=== PATIENT | male | born 1980 | race Caucasian/White ===

== ENCOUNTER 2024-01-27 03:02 | Day surgery (SDC) | payer OTHER, SELFPAY ==
[2024-01-26 12:35] VITALS: BMI 32.8
[2024-01-27] VITALS (12 sets, daily range): BP systolic 97–117; BP diastolic 60–81; PULSE 61–71; RESP 15–20; TEMP 36.4–36.7; O2SAT 92–97; BMI 31.1
[2024-01-27 10:37] LABS: Basophils Absolute Auto 0.1 K/mm3 (0.0-0.1); Eosinophils Absolute Auto 0.3 K/mm3 (0-0.3); Eosinophils Percent Auto 5.7 % (0-4.4); Hemoglobin 16.5 g/dL (14.0-18.0); Immature Granulocyte Absolute 0.01 K/mm3 (0.00-0.031); Immature Granulocyte Percent A 0.2 % (0-0.5); Lymphocytes Absolute Auto 1.25 K/mm3 (0.9-3.2); Lymphocytes Percent Auto 22.2 % (18.3-44.2); Mean Corpuscular HGB Conc 34.4 g/dl (32-36); Mean Corpuscular Hemoglobin 29.6 pg (26-34); Mean Corpuscular Volume 86.2 fl (80-100); Mean Platelet Volume 10.3 fl (7.4-10.4); Monocytes Absolute Auto 0.4 K/mm3 (0.1-0.6); Monocytes Percent Auto 7.3 % (2.6-8.5); Neutrophils Absolute Auto 3.5 K/mm3 (1.3-6.7); Neutrophils Percent Auto 62.6 % (45.5-73.1); Platelet Count Result 184 k/mm3 (150-375); Red Blood Count 5.57 M/mm3 (4.6-6.20); Red Cell Distribution Width 12.5 % (11.5-14.5); White Blood Count 5.6 K/mm3 (4.5-10.0)
[2024-01-27 10:56] LABS: Anion Gap 9 mmol/L (4-12); Blood Urea Nitrogen 17 mg/dL (9-20); Calcium 9.7 mg/dL (8.4-10.2); Carbon Dioxide 26 mmol/L (22-30); Chloride 103 mmol/L (98-107); Estimated CRCL calculation 106 ml/min; Estimated Glomerular Filt Rate > 60; Glucose 118 mg/dL (65-110); Sodium 138 mmol/L (137-145)
--- NOTE | 2024-01-27 13:19 | WPDHPUPDATE1 ---
History and Physical Update Update Date/Time: 01/27/24 13:19 History and Physical has been reviewed, including an updated exam of the patient. There are NO changes in the patient's condition. Risks, benefits, and alternatives have been discussed and questions answered. Patient agrees to proceed with procedure.
--- NOTE | 2024-01-27 13:19 | WPDMODSED ---
Moderate Sedation Note-Pt Data Patient Data Diagnosis: Chest pain, abnormal CCTA Present Complaint: Chest pain, abnormal CCTA Procedure to be performed/Plan: Coronary angiography, left heart cath, +/- PCI Allergies Allergy/AdvReac Type Severity Reaction Status Date / Time metoprolol AdvReac Itching Verified 01/26/24 12:51 Home Medications Medication Instructions Recorded Confirmed Type allopurinol 100 mg tablet 100 mg PO DAILY 01/26/24 01/27/24 History citalopram 20 mg tablet 20 mg PO DAILY 01/26/24 01/27/24 History olmesartan 40 mg tablet 40 mg PO DAILY 01/26/24 01/27/24 History rosuvastatin 10 mg tablet 10 mg PO DAILY 01/26/24 01/27/24 History Current Medications: Active Medications Sodium Chloride (Normal Saline Iv) 500 mls @ 100 mls/hr IV CONT .Q5H LILI Sodium Chloride (Normal Saline Iv) 1,000 mls @ 125 mls/hr IV CONT .Q8H ONE Stop: 01/27/24 21:16 Miscellaneous Information (Please Add Drug Allergy Info To Patient Profile.) 1 each XX CLARIFY LILI Stop: 02/25/24 00:00 Sedation/Anesthesia: No previous sedation/anesthesia problems (including family history). PMFSH Social History Social History Smoking status: Never smoker Smokeless tobacco user: chewing tobacco Second hand tobacco smoke exposure: No Alcohol intake: never Substance use: never Substance use type: does not use Living arrangements: alone Spiritual care concerns: No Mod Sed Physical Exam Physical Exam Pre Procedural Exam: Normal: Appearance, Lungs, Heart Rate, Heart Rhythm, Neuro Exam, Extremities and Skin Hours since solid foods: 12 Hours since liquid intake: 8 Mallampati Classification: class III Internal Medicine - PN: Obj Da Vital Signs Vital Signs: Vital Signs - 24 hr 01/27/24 10:33 Temperature 36.7 C Pulse Rate 63 Respiratory Rate 17 Blood Pressure 116/78 Pulse Oximetry 96 Oxygen Delivery Room Air Meds/Results Medications: Active Medications Generic Name Dose Route Start Last Admin Trade Name Freq PRN Reason Stop Dose Admin Sodium Chloride 500 mls @ 100 mls/hr 01/27/24 10:00 Normal Saline Iv IV CONT .Q5H LILI Sodium Chloride 1,000 mls @ 125 mls/hr 01/27/24 13:17 Normal Saline Iv IV CONT 01/27/24 21:16 .Q8H ONE Miscellaneous Information 1 each 01/26/24 00:01 Please Add Drug Allergy Info To Patient Profile. XX 02/25/24 00:00 CLARIFY LILI Labs 01/27/24 10:22 01/27/24 10:22 Labs: Laboratory Results - last 24 hr 01/27/24 10:22 WBC 5.6 RBC 5.57 Hgb 16.5 Hct 48.0 MCV 86.2 MCH 29.6 MCHC 34.4 RDW 12.5 Plt Count 184 MPV 10.3 Immature Gran % (Auto) 0.2 Neut % (Auto) 62.6 Lymph % (Auto) 22.2 Wise % (Auto) 7.3 Eos % (Auto) 5.7 H Baso % (Auto) 2.0 H Lymph # (Auto) 1.25 Wise # (Auto) 0.4 Eos # (Auto) 0.3 Baso # (Auto) 0.1 Abs Immat Gran (auto) 0.01 Absolute Neuts (auto) 3.5 Absolute Nucleated RBC 0.000 Nucleated RBC % 0.0 Sodium 138 Potassium 4.0 Chloride 103 Carbon Dioxide 26 Anion Gap 9 BUN 17 Creatinine 1.00 Estim Creat Clear Calc 106 Estimated GFR > 60 Glucose 118 H Calcium 9.7 ASA Classification/Sedation ASA Classification/Sedation ASA Class: III Emergent: No Risks: Risks, benefits and alternatives explained and patient/family accepted plan for sedation. Patient re-evaluated immediately prior to sedation.
--- NOTE | 2024-01-27 13:20 | WPDCARDPROC ---
Cardiac Cath Procedure Note Date of procedure:: 01/27/24 Performing physician:: CATHETERIZATION LABORATORY REPORT Procedure Date: 01/27/2024 Chief Of Service: Patrizia Lomeli M.D., [facility]? Referring Physician: Db Alejandre M.D. ? Anesthesia: Versed and Fentanyl were ordered and given in my presence at 12:39, procedure ended at 13:11. Supervision of nurse monitored moderate sedation with Versed and Fentanyl was provided for 32 minutes. Total of Versed 1mg and Fentanyl 50mcg were administered by the Lathe Tender RN Rosi Epps. Pre-op Diagnosis: Coronary artery disease Post-op Diagnosis: 1. Non-obstructive coronary artery disease. Slow flow noted in the RCA, LCX, and LAD. 2. Elevated left ventricular end-diastolic pressure of 18mmHg Procedure(s): 1. Moderate sedation 2. Ultrasound-guided access of the right radial artery 3. Coronary angiography 4. Left heart catheterization Access Site: Right radial artery Brief History and Clinical Indications: Patient is a 43 year old male who is referred for [facility] for chest pain and abnormal CCTA. All risks, benefits and alternatives to left heart catheterization with or without percutaneous coronary intervention was discussed at length with the patient. Risk of complications including but not limited to bleeding, infection, arrhythmia, stroke, worsening kidney function, blood loss, groin hematoma, limb loss, emergency coronary artery bypass grafting, and even were discussed with the patient and all questions were answered. The patient understood and wished to proceed. Time out called, patient name, date of , medical record number, allergies, procedure performed, identify Chief Of Service, patient and staff member concurred with accurate data, procedure carried on. Findings: LEFT HEART CATHETERIZATION FINDINGS: 1. Left main: The left main coronary artery is widely patent without any significant obstructive disease. 2. Left anterior descending: The LAD has diffuse mild disease. The ostium of the first diagonal branch has mild-moderate disease. The ostium of the first septal branch has moderate disease. Slow flow noted in the LAD. 3. Left circumflex: The left circumflex artery and the main marginal branches have mild diffuse disease without any significant obstructive angiographic disease. Slow flow noted. 4. Right coronary artery: The RCA is the dominant vessel. Slow flow noted in the RCA. The RCA has mild diffuse disease. No significant obstructive angiographic disease. 5. Left ventricle: A. End-diastolic pressure 18 mmHg. B. LV gram deferred. C. No significant gradient across aortic valve on catheter pullback. Description of Procedure: Informed consent signed and placed in the chart. Patient transferred to labor relations consultant room. Prepped and draped in usual sterile fashion. 2% lidocaine injected subcutaneously in right wrist area. 22-gauge venipuncture catheter used to access the right radial artery under ultrasound guidance. 6-FR slender sheath placed in right radial artery. Nitroglycerine and Verapamil were given intraarterial through the sheath. Versacore wire advanced under fluoroscopy Unable to engage 5F Tig 4 in the LM or RCA. 5F FL 4 diagnostic catheter engaged Left Main Coronary Artery. 5F FR 4 diagnostic catheter engaged Right Coronary Artery Multiple orthogonal angiogram obtained and reviewed 5F Pigtail diagnostic catheter crossed aortic valve to obtain LVEDP, LV angiogram deferred. Hemostasis was achieved by application of TR band. Post Operative Condition: Stable No significant blood loss Disposition: Home Plan: The patient will be monitored in the recovery area. The above findings were discussed with the referring physician. Continue aggressive medical therapy and risk factor modification. ? Patrizia Lomeli M.D. Interventional Cardiology
== END 2024-01-27 16:36 | disposition home or self-care (01) ==
PROVIDERS: Visit Provider Internal Medicine
PROC: 4A023N7 Measurement of Cardiac Sampling and Pressure, Left Heart, Percutaneous Approach (ICD-10-PCS; CPT 93452; principal; 2024-01-27 11:30)
DX: I25.10 Atherosclerotic heart disease of native coronary artery without angina pectoris (principal); R93.1 Abnormal findings on diagnostic imaging of heart and coronary circulation; F17.220 Nicotine dependence, chewing tobacco, uncomplicated
CPT/HCPCS: 36415; 80048; 85025; 93458; A9270; C1769; C1887; C1894; J1644; J2250; J2305; J3010; J7040